=== PATIENT | female | born 1960 | race Caucasian/White ===

== ENCOUNTER → 2020-09-04 18:40 | Outpatient (ROUT) | payer OTHER, SELFPAY ==
[2020-09-04 18:52] LABS: Hemoglobin 14.2 g/dL (12.0-16.0); Mean Corpuscular HGB Conc 32.9 % (30-36); Mean Corpuscular Hemoglobin 29.8 PG (26-34); Mean Corpuscular Volume 90.6 fL (80-100); Platelet Count 356 X10^3/uL (150-400); Red Blood Cell Count 4.75 X10^6/uL (4.0-5.2); Red Cell Distribution Width 13.7 % (11.6-14.8); White Blood Cell Count 7.9 X10^3/uL (4.5-11.0)
[2020-09-04 19:00] LABS: Alanine Aminotransferase 31 IU/L (<35); Albumin 4.4 g/dL (3.5-5.0); Albumin Globulin Ratio 1.4 (1.0-2.8); Alkaline Phosphatase 92 U/L (38-126); Aspartate Aminotransferase 25 IU/L (14-36); BUN Creatinine Ratio 16.7 (6-22); Bilirubin Total 0.7 mg/dL (0.2-1.3); Blood Urea Nitrogen 10 mg/dL (7-17); C-Reactive Protein Quant 0.7 mg/dL (<1.0); Calcium 9.7 mg/dL (8.4-10.2); Carbon Dioxide 32 mmol/L (22-32); Chloride 103 mmol/L (98-107); Cholesterol 208 mg/dL (140-199); Estimated Glomerular Filt Rate > 60.0 mL/min (>60); Globulin 3.1 g/dL (1.7-4.1); Glucose 112 mg/dL (70-100); HDL Cholesterol 74 mg/dL (40-60); HEMOLYSIS < 15 (0-50); LDL Cholesterol Calculated 118 mg/dL (<100); Potassium 4.5 mmol/L (3.4-5.1); Sodium 138 mmol/L (137-145); Total Protein 7.5 g/dL (6.3-8.2); Triglycerides 78 mg/dL (35-150)
[2020-09-04 19:01] LABS: Rheumatoid Factor < 8.6 IU/mL (<12.0)
[2020-09-04 19:17] LABS: Erythrocyte Sedimentation Rate 4 MM/HR (0-20)
[2020-09-07 19:08] LABS: CCP Antibodies IgG/IgA 6 units (0-19)
== END ==
PROVIDERS: Visit Provider Student in an Organized Health Care Education/Training Program
DX: E11.9 Type 2 diabetes mellitus without complications (principal); I10 Essential (primary) hypertension
CPT/HCPCS: 80053; 80061; 85027; 85651; 86140; 86200; 86430

== ENCOUNTER → 2020-11-06 10:08 | Outpatient (CLI) | payer OTHER, SELFPAY ==
[2020-11-06 11:13] LABS: COVID19 -Nasal RAPID Negative (Negative)
== END ==
PROVIDERS: PCP Student in an Organized Health Care Education/Training Program; Visit Provider Surgery
DX: Z20.822 Contact with and (suspected) exposure to COVID-19 (principal)
CPT/HCPCS: 87635; C9803

== ENCOUNTER 2020-11-07 12:08 | Day surgery (SDC) | payer OTHER, SELFPAY ==
[2020-11-07] MEDS: SODIUM CHLORIDE 0.9% 1,000 ML 200 ML IV (12:33)
[2020-11-07 12:34] VITALS: BP 134/92; PULSE 108; RESP 16; TEMP 36.3; O2SAT 98; BMI 41.2
--- NOTE | 2020-11-07 12:59 | PM.HP.1 ---
History of Present Illness History of Present Illness Date Patient Seen: 11/07/20 Time Patient Seen: 12:59 Chief complaint: SCREENING COLONOSCOPY Narrative: This is a 60 yo woman with morbid obesity (41.3), type 2 diabetes, hypertension, diverticulitis, and history of colon polyps on prior colonoscopy ten years ago. She reports that she had an abnormal appearing polyp found, which was tattooed for surveillance. She then had a follow up colonoscopy the same year which was normal per the patient. This is all based on patient report. I do not have the notes from those procedures. She denies any new symptoms, melena, hematochezia, unexplained abdominal pain, unexplained weight loss. ROS: Thirteen system review is otherwise negative other than as mentioned below and in HPI. PE: GENERAL: Well groomed and cooperative. Morbidly obese. Appears stated age. Answers questions promptly and appropriately. Vital signs noted. HENT: Normocephalic, atraumatic. Hearing intact. EYES: Conjunctiva pink, sclera white, no periorbital swelling. CARDIOVASCULAR: Regular rate. No pedal edema. RESPIRATORY: Non-tachypneic, breathing comfortably on room air. GASTROINTESTINAL: Abdomen soft and non-distended GENITALURINARY: No flank tenderness. MUSCULOSKELETAL: Equal tone and mass bilaterally. SKIN: Warm, dry, soft, appropriate color for ethnicity. No other lesions, rashes, or wounds. NEURO: Alert and Oriented X 3. No gross sensory deficits, or cognitive issues. PSYCH: Appropriate affect and mood. Patient History Medical History Diabetes mellitus, type II Diverticulitis Hypertension Family & Social History Social History: household members spouse Tobacco & Substance use: Smoking Status Never smoker alcohol intake current alcohol intake frequency a few times a week Substance Use Type does not use Meds Home Medications and Allergies Home Medications Medication Instructions Recorded Confirmed Type amlodipine 5 mg PO DAILY 11/07/20 11/07/20 History furosemide 20 mg PO DAILY 11/07/20 11/07/20 History losartan 100 mg PO DAILY 11/07/20 11/07/20 History metformin 2,000 mg PO DAILY 11/07/20 11/07/20 History Allergies Allergy/AdvReac Type Severity Reaction Status Date / Time No Known Drug Allergies Allergy Verified 11/07/20 12:29 Exam Vital Signs (past 8 hours): - 11/07/20 12:34 Temperature 97.4 F L Pulse Rate 108 H Respiratory Rate 16 Blood Pressure 134/92 H Pulse Oximetry 98 Oxygen Delivery Method Room Air Assessment & Plan Assessment and plan (1) Personal history of colonic polyps: Status: Acute (2) Hypertension: Status: Acute (3) Diabetes mellitus, type II: Status: Acute (4) History of diverticulitis: Status: Acute (5) Morbid obesity with BMI of 40.0-44.9, adult: Status: Acute Assessment & Plan narrative: Risks and benefits of screening colonoscopy and possible polypectomy were discussed with the patient including risk of bleeding, perforation, need for additional procedures, risks of anesthesia. The patient desires to proceed with the colonoscopy procedure. This patient is at increased risk of colon cancer, and complications from procedural sedation due to her morbid obesity. COVID-19 COVID-19 status: Negative Result date/Date tested (Pos, Neg/Pending): 11/06/20 Time Spent With Patient Time with patient: 15-24 minutes Quality VTE Deep Vein Thrombosis/Pulmonary Embolism Present on Admission: No
--- NOTE | 2020-11-07 13:23 | P.OP.ENDO_ITS ---
Operative Date/Time/Diagnoses Date of procedure: 11/07/20 Time of procedure: 13:24 Pre-op diagnosis: Personal history of colon polyps Post-op diagnosis: other (Normal colon; no polyps) Procedure & Clinicians Study performed: Colonoscopy Procedural sedation performed by the endoscopist. Indications: Personal history of colon polyps, due for follow-up colonoscopy Surgeon: Tere Reddy Procedure Notes SCOAP/Timeout: Performed Procedure in detail: The patient was brought to the room and placed in left lateral decubitus position with all bony prominences padded. A time-out was performed and then the patient was given procedural sedation starting with mg of Versed and 10 mcg of fentanyl. A total of 8 mg of Versed and 150 micro g of fentanyl were given for the entire procedure. Vitals were monitored throughout the procedure and remained stable. Once adequately sedated, the procedure was begun. A rectal exam was performed revealing no abnormalities. The colonoscope was then introduced to the rectum and advanced to the cecum in the usual fashion. The cecum was identified by the appendiceal orifice, the mucosal tri- fold, and the ileocecal valve. The scope was then retracted while rotating side to side and examining each mucosal fold. The patient's tattoo from her prior polypectomy site was seen, With no evidence of recurrence. She had significant diverticulosis throughout the entire colon, but no evidence of active diver ticulitis. At the conclusion of the procedure retroflexion was performed and small grade 1-2 internal hemorrhoids without stigmata of bleeding were seen. The scope was then withdrawn from the rectum the procedure was concluded. The patient tolerated the procedure well and was transferred to the PACU in stable condition. Scope withdrawal time: 8 Sedation minutes: 29 Findings: diverticulosis Specimen(s): none sent Complications: none Impression: Significant diverticulosis. No evidence of diverticulitis. No evidence of colon polyps. Post-procedure Recommendations: Colonscopy in 10 years (Or sooner if clinically indicated) Follow up: as needed Disposition: PACU
[2020-11-07] MEDS: MIDAZOLAM 5 MG/5 ML VIAL IV ×2 (13:24→13:32)
[2020-11-07] MEDS: fentaNYL 250 MCG/5 ML INJ IV (13:24)
[2020-11-07 13:47] VITALS: BP 123/81; PULSE 86; RESP 14; TEMP 36.5; O2SAT 94
[2020-11-07 13:52] VITALS: BP 119/71; PULSE 82; RESP 14; O2SAT 94
[2020-11-07 13:57] VITALS: BP 127/78; PULSE 80; RESP 16; O2SAT 95
[2020-11-07 14:02] VITALS: BP 114/80; PULSE 80; RESP 14; O2SAT 95
[2020-11-07 14:07] VITALS: BP 121/78; PULSE 89; RESP 14; TEMP 36.8; O2SAT 96
== END 2020-11-07 14:25 | disposition home or self-care (01) ==
PROVIDERS: PCP Student in an Organized Health Care Education/Training Program; Referring Provider Surgery; Visit Provider Surgery
PROC: 0DJD8ZZ Inspection of Lower Intestinal Tract, Via Natural or Artificial Opening Endoscopic (ICD-10-PCS; CPT 45378; principal; 2020-11-07 13:00)
DX: Z12.11 Encounter for screening for malignant neoplasm of colon (principal); Z86.010 Personal history of colon polyps; I10 Essential (primary) hypertension; E11.9 Type 2 diabetes mellitus without complications; Z87.19 Personal history of other diseases of the digestive system; E66.01 Morbid (severe) obesity due to excess calories; Z79.84 Long term (current) use of oral hypoglycemic drugs; Z68.41 Body mass index [BMI] 40.0-44.9, adult; K57.30 Diverticulosis of large intestine without perforation or abscess without bleeding; K64.0 First degree hemorrhoids
CPT/HCPCS: 45378; 99152; J2250; J3010